=== PATIENT | female | born 1960 | race Caucasian/White ===

== ENCOUNTER → 2017-01-07 | Outpatient (CLI) | payer BC ==
[~2017-01-07] MED LIST: AYR0.65S; LORA10TA2 PO; PROP80CA PO; SERT-138 PO
--- NOTE | 2017-01-07 17:43 | REP ---
PELVIC ULTRASOUND: Real-time sonographic evaluation of the pelvis performed utilizing transabdominal technique. The bladder measures 13.1 x 8.3 x 10.3 cm. The uterus measures 7.1 x 2.7 x 4.4 cm. There is a left anterior fibroid measuring 1.7 x 2.3 x 2.4 cm. Endometrial thickness is 5 mm. The right ovary is enlarged measuring 5.8 x 4.2 x 5.0 cm. There is a cyst in the right ovary 4.3 x 4.5 x 3.1 cm. Left ovary measures 2.7 x 1.6 x 2.9 cm. There is blood flow seen in each ovary with duplex Doppler evaluation with no torsion, RI right ovary 0.65 and left ovary 0.57. There is free fluid. IMPRESSION: Left anterior fibroid 2.4 cm in maximum diameter. Right ovarian cyst, maximum diameter 4.5 cm. Recommend followup ultrasound in two to three months. Unreviewed
== END ==
LOC: M RAD 14:23
PROVIDERS: ATTEND Obstetrics & Gynecology
DX: R10.2 Pelvic and perineal pain (principal); D25.1 Intramural leiomyoma of uterus

== ENCOUNTER 2017-02-04 09:58 | Day surgery (SDC) | payer BC ==
[~2017-02-04] VITALS: Ht 162.6 cm; Wt 102.1 kg
[2017-02-04] MEDS ORDERED: LIDOCAINE 2% INJ 100 MG/5 ML SDV (FOR ANES.) As Ordered ONE (10:06)
[2017-02-04] MEDS ORDERED: ONDANSETRON 4MG/2ML VIAL (J2405) As Ordered ONE (10:06)
[2017-02-04] MEDS ORDERED: dexameTHASONE 4 MG/ML 1ML VIAL (J1100) As Ordered ONE (10:06)
[2017-02-04] MEDS ORDERED: PROPOFOL 200 MG/20 ML VIAL As Ordered ONE (10:06)
[2017-02-04] MEDS ORDERED: MIDAZOLAM INJ 2 MG/2 ML VIAL (J2250) As Ordered ONE (10:06)
[2017-02-04] MEDS ORDERED: ROCURONIUM BROMIDE 50 MG/5 ML VIAL/SYRINGE As Ordered ONE ×2 (10:06→11:18)
[2017-02-04] MEDS ORDERED: NEOSTIGMINE 10 MG/10 ML VIAL (J2710) As Ordered ONE (10:06)
[2017-02-04] MEDS ORDERED: GLYCOPYRROLATE INJ 0.2 MG/ML 2 ML VIAL As Ordered ONE (10:06)
[2017-02-04] MEDS ORDERED: fentaNYL 100 MCG/2 ML INJECTION (J3010) As Ordered ONE (10:07)
[2017-02-04] MEDS ORDERED: LR 1,000 ML IV ONE (10:30)
[2017-02-04] MEDS ORDERED: LIDOCAINE 1% MDV 20ML VIAL SQ ONE (10:30)
[2017-02-04] MEDS ORDERED: HYDROmorphone HCL 2 MG/ML 1ML VIAL (J1170) As Ordered ONE (11:18)
[2017-02-04] MEDS ORDERED: HYDROmorphone HCL 1 MG/ML SYRINGE (J1170) IV PRN (13:45)
[2017-02-04] MEDS ORDERED: ONDANSETRON 4MG/2ML VIAL (J2405) IV PRN (13:45)
[2017-02-04] MEDS ORDERED: LR 1,000 ML IV SCH ×2 (13:45→14:00)
[2017-02-04] MEDS ORDERED: PERCOCET 5MG/325MG TAB PO PRN (13:45)
[2017-02-04] MEDS ORDERED: METOCLOPRAMIDE INJ 10MG/2ML VIAL (J2765) IV PRN (13:45)
[2017-02-04] MEDS ORDERED: fentaNYL 100 MCG/2 ML INJECTION (J3010) IV PRN (13:45)
[2017-02-04] MEDS ORDERED: NORCO, ANEXSIA 5/325MG TABLET (HYDROcodone/ACETAMINOPHEN) PO PRN (14:00)
[2017-02-04] MEDS ORDERED: IBUPROFEN 600 MG TAB PO PRN (14:00)
[2017-02-04 17:30] VITALS: BP 136/64
--- NOTE | 2017-02-04 20:20 | RO ---
DATE OF PROCEDURE: 02/04/2017 PREOPERATIVE DIAGNOSIS: Persistent right ovarian cyst and pain. POSTOPERATIVE DIAGNOSIS: Persistent right ovarian cyst and pain. OPERATIVE PROCEDURE: Laparoscopic right salpingo-oophorectomy. SURGEON: Jenny Fenton MD [employer] FABRICATION: ANESTHESIA: General endotracheal anesthesia. SPECIMENS: Right ovary and tube and cyst fluid for cytology. BRIEF DESCRIPTION OF PROCEDURE AND FINDINGS: Vani was brought to the operating room where sufficient general endotracheal anesthesia was induced and she was prepped, draped and positioned in the usual sterile fashion. A uterine manipulator was placed after the uterus had been sounded to 8 and attention was then turned to the abdomen. A transverse semilunar incision was made below the umbilicus. Sharp and blunt dissection were continued to the level of the rectus fascia which was transversely incised, secured with #0 Vicryl retention sutures and the peritoneum was entered under direct visualization. With the Isabell cannula then placed and CO2 insufflation then begun using open laparoscopic technique of course and with the Isabell secured with the #0 Vicryl retention sutures. After adequate CO2 insufflation, the peritoneal cavity was visualized. There were normal shiny peritoneal surfaces throughout. There was no excrescences, ascites, nor exudate. There was a right ovarian cyst which was dragging the right ovary down into the right pelvis and into the cul-de-sac, and with some manipulation we were able to elevate this ovary and then flip it up over the top of the uterus, which incidentally is noted to have some fibroids, which clearly distort the uterine contour, but are not of tremendous size. No other pelvic abnormalities, no significant adhesions. The fallopian tube itself was normal in appearance, but was tightly adherent to the ovary. So we went ahead, flipped that ovary up over the broad anteriorly and held it up using the uterus itself and we were able by this means to then drain the cyst fluid which came back clear, some 40 mL or so, following which the ovary essentially deflated and we were able then with a 45 Enseal to carefully cauterize and transect the infundibulopelvic ligament on the right side. We were able to see the peristalsing ureter and stay well away from it and the intestine and we then having controlled the lateral blood supply, we then cauterized and transected the uteroovarian suspensory ligament and then carefully worked our way through the fallopian tube and the mesentery. Thus, the right tube and ovary were removed from the patient. The pedicles themselves had good hemostasis and we used a grasper to take the now deflated ovary and tube up into the trocar. We were able to get it inside with the grasper inside the 10 mm umbilical trocar and then just remove the trocar with the ovary and tube within them, so we did not need to use an Endo Catch bag for this case or another port. We already had seen the rest of the pelvis, was reassuring in appearance and so the CO2 was then allowed to escape the abdomen using one of the S-retractors to hold it open, get as much of that out as possible. We then used the #0 Vicryl tension sutures and the fascia to close the fascial layer of the wound and then skin was closed with #3-0 Vicryl in a subcuticular stitch with dry sterile dressing then applied after we had confirmed good hemostasis and approximation of each layer. The uterine manipulator was then removed and then the procedure ended. Estimated blood loss for the procedure was maybe 5 mL tops. Fluid replacement was crystalloid. Complications, none. Condition and disposition: Vani tolerated the procedure well and was recovering in the recovery room in good condition.
== END 2017-02-04 17:45 | disposition home or self-care (01) ==
LOC: M SDC 09:58
PROVIDERS: ATTEND Obstetrics & Gynecology
DX: N83.201 Unspecified ovarian cyst, right side (principal); K21.9 Gastro-esophageal reflux disease without esophagitis; F41.9 Anxiety disorder, unspecified; I10 Essential (primary) hypertension; E78.5 Hyperlipidemia, unspecified; Z88.2 Allergy status to sulfonamides; Z79.899 Other long term (current) drug therapy
CPT/HCPCS: 58661; 88108; 88305; 88313; J1100; J1170; J2250; J2405; J2710; J3010

== ENCOUNTER → 2017-02-09 | Outpatient (REF) | payer BC | LOC: M LAB REF 16:32 | PROVIDERS: ATTEND Nurse Practitioner Women's Health | DX: R35.0 Frequency of micturition (principal) ==

== ENCOUNTER → 2017-05-20 | Outpatient (REF) | LOC: M LAB REF 13:05 | DX: L82.1 Other seborrheic keratosis (principal) ==